=== PATIENT | male | born 1990 | race American Indian/Alaskan Native ===

== ENCOUNTER 2017-06-21 16:57 | Emergency (ER) | payer SELFPAY ==
[2017-06-21 17:26] VITALS: BP 129/68
[2017-06-21] MEDS ORDERED: ZITHROMAX PO ONE (17:40)
[2017-06-21] MEDS ORDERED: XYLOCAINE 1% MPF 5 mL INFILTRATI ONE (17:40)
[2017-06-21] MEDS ORDERED: ROCEPHIN IM ONE (17:40)
--- NOTE | 2017-06-21 17:41 | Emergency Department Report ---
ED Male HPI - General Chief complaint: Urogenital-Male Stated complaint: PENILE DISCHARGE Time Seen by Provider: 06/21/17 17:36 Source: patient Mode of arrival: Ambulatory Limitations: No Limitations - History of Present Illness Initial comments: 26-year-old male past medical history none presents with complaint of 3-4 days of penile discharge and burning with urination. States he has whitish yellowish discharge from tip of penis. Patient is awake alert and oriented 3, denies nausea vomiting diarrhea abdominal pain. Denies any genitourinary rash. States he is currently sexually active and last received oral sex a week ago. Multiple sexual partners in the last 6 months. Unprotected homosexual sex. MD Complaint: penile discharge Onset/Timin -: days(s) Location: penis Quality: burning Consistency: constant Improves with: none Worsens with: none discharge - Related Data Previous Rx's Medication Instructions Recorded Last Taken Type metroNIDAZOLE [Metronidazole] 1,000 mg PO BID #4 tablet 06/21/17 Unknown Rx Allergies Allergy/AdvReac Type Severity Reaction Status Date / Time No Known Allergies Allergy Unverified 06/21/17 17:24 ED Review of Systems ROS: Stated complaint: PENILE DISCHARGE Other details as noted in HPI Constitutional: denies: chills, fever Eyes: denies: eye pain, eye discharge, vision change ENT: denies: ear pain, throat pain Respiratory: denies: cough, shortness of breath, wheezing Cardiovascular: denies: chest pain, palpitations Endocrine: no symptoms reported Gastrointestinal: denies: abdominal pain, nausea, diarrhea Genitourinary: discharge. denies: urgency, dysuria Musculoskeletal: denies: back pain, joint swelling, arthralgia Skin: denies: rash, lesions Neurological: denies: headache, weakness, paresthesias Psychiatric: denies: anxiety, depression Hematological/Lymphatic: denies: easy bleeding, easy bruising ED Past Medical Hx - Past Medical History Previous Medical History?: No - Surgical History Past Surgical History?: No - Social History Smoking Status: Current Some Day Smoker Substance Use Type: None - Medications Home Medications: Home Medications Medication Instructions Recorded Confirmed Last Taken Type metroNIDAZOLE [Metronidazole] 1,000 mg PO BID #4 tablet 06/21/17 Unknown Rx ED Physical Exam - General Limitations: No Limitations General appearance: alert, in no apparent distress - Head Head exam: Present: atraumatic, normocephalic - Eye Eye exam: Present: normal appearance, PERRL, EOMI - ENT ENT exam: Present: mucous membranes moist - Neck Neck exam: Present: normal inspection - Respiratory Respiratory exam: Present: normal lung sounds bilaterally. Absent: respiratory distress - Cardiovascular Cardiovascular Exam: Present: regular rate, normal rhythm. Absent: systolic murmur, diastolic murmur, rubs, gallop - GI/Abdominal GI/Abdominal exam: Present: soft, normal bowel sounds - Rectal Rectal exam: Present: deferred - exam: Present: urethral discharge (yellowish urethral discharge) - Extremities Exam Extremities exam: Present: normal inspection - Back Exam Back exam: Present: normal inspection - Neurological Exam Neurological exam: Present: alert, oriented X3 - Psychiatric Psychiatric exam: Present: normal affect, normal mood - Skin Skin exam: Present: warm, dry, intact, normal color. Absent: rash ED Course Vital Signs 06/21/17 17:24 Temperature 98.4 F Pulse Rate 73 Respiratory 16 Rate Blood Pressure 129/68 O2 Sat by Pulse 99 Oximetry ED Medical Decision Making - Medical Decision Making A/P: Urethritis 1-patient empirically treated with azithromycin and ceftriaxone 2-GC cultures sent 3-patient given follow-up with primary care 4- empiric treatment for Trichomonas with 2 g of metronidazole Critical care attestation.: If time is entered above; I have spent that time in minutes in the direct care of this critically ill patient, excluding procedure time. ED Disposition Clinical Impression: Urethritis Disposition: DC-01 TO HOME OR SELFCARE Is pt being admited?: No Does the pt Need Aspirin: No Condition: Stable Instructions: Nonspecific Urethritis in Men (ED) Prescriptions: metroNIDAZOLE [Metronidazole] 1,000 mg PO BID #4 tablet Referrals: [facility] [Provider Group] - 3-5 Days Forms: STI Treatment and Prevention Time of Disposition: 17:42
[2017-06-21 18:40] LABS: Bilirubin,Urine NEG (Negative); Color,Urine Yellow (Yellow)
[2017-06-21 18:41] LABS: Blood,Urine NEG (Negative); Mucus,Urine FEW /HPF; Nitrite,Urine NEG (Negative); Protein,Urine <15 mg/dL mg/dL (Negative); Urobilinogen,Urine < 2.0 mg/dL (<2.0)
== END 2017-06-21 18:22 | disposition home or self-care (01) ==
LOC: ED 16:57
DX: N34.2 Other urethritis (principal); F17.200 Nicotine dependence, unspecified, uncomplicated
CPT/HCPCS: 81001; 87591; 96372; 99283; J0696

== ENCOUNTER 2018-06-16 06:26 | Emergency (ER) | payer OTHER ==
[2018-06-16] MEDS ORDERED: ULTRAM PO ONE (08:16)
--- NOTE | 2018-06-16 08:19 | Emergency Department Report ---
ED ENT HPI - General Chief complaint: Sore Throat Stated complaint: SORE THROAT Time Seen by Provider: 06/16/18 08:07 Source: patient Mode of arrival: Ambulatory Limitations: No Limitations - History of Present Illness Initial comments: 27-year-old -Martin[place]ais male with a past medical history of HIV comes in for painful right side of throat since . Patient reports he is tried taking Cepacol throat spray and lozenges without much relief. Patient also reports he took ibuprofen which she reports helped some but pain returns. Patient states he has difficulty swallowing. MD complaint: sore throat, difficulty swallowing -: days(s) (3) Location: throat Severity: severe Severity scale (0 -10): 9 Quality: aching, sharp Consistency: constant Improves with: NSAID Worsens with: swallowing Associated Symptoms: pain with swallowing, sore throat. denies: fever, cough, gum swelling, toothache - Related Data Previous Rx's Medication Instructions Recorded Last Taken Type metroNIDAZOLE [Metronidazole] 1,000 mg PO BID #4 tablet 06/21/17 Unknown Rx Amoxicillin [Amoxicillin TAB] 875 mg PO BID #20 tablet 06/16/18 Unknown Rx Ibuprofen [Motrin 800 MG tab] 800 mg PO Q8HR PRN #15 tablet 06/16/18 Unknown Rx Allergies Allergy/AdvReac Type Severity Reaction Status Date / Time No Known Allergies Allergy Unverified 06/21/17 17:24 ED Dental HPI - General Chief complaint: Sore Throat Stated complaint: SORE THROAT Time Seen by Provider: 06/16/18 08:07 Source: patient Mode of arrival: Ambulatory Limitations: No Limitations - Related Data Previous Rx's Medication Instructions Recorded Last Taken Type metroNIDAZOLE [Metronidazole] 1,000 mg PO BID #4 tablet 06/21/17 Unknown Rx Amoxicillin [Amoxicillin TAB] 875 mg PO BID #20 tablet 06/16/18 Unknown Rx Ibuprofen [Motrin 800 MG tab] 800 mg PO Q8HR PRN #15 tablet 06/16/18 Unknown Rx Allergies Allergy/AdvReac Type Severity Reaction Status Date / Time No Known Allergies Allergy Unverified 06/21/17 17:24 ED Review of Systems ROS: Stated complaint: SORE THROAT Other details as noted in HPI Comment: All other systems reviewed and negative Constitutional: denies: fever ENT: throat pain ED Past Medical Hx - Past Medical History Previous Medical History?: Yes Hx HIV: Yes - Surgical History Past Surgical History?: No - Social History Smoking Status: Current Some Day Smoker Substance Use Type: None - Medications Home Medications: Home Medications Medication Instructions Recorded Confirmed Last Taken Type metroNIDAZOLE [Metronidazole] 1,000 mg PO BID #4 tablet 06/21/17 Unknown Rx Amoxicillin [Amoxicillin TAB] 875 mg PO BID #20 tablet 06/16/18 Unknown Rx Ibuprofen [Motrin 800 MG tab] 800 mg PO Q8HR PRN #15 tablet 06/16/18 Unknown Rx ED Physical Exam - General Limitations: No Limitations General appearance: alert, in no apparent distress - Head Head exam: Present: atraumatic, normocephalic - Eye Eye exam: Present: EOMI - ENT ENT exam: Present: mucous membranes moist - Expanded ENT Exam Expanded Throat exam: Positive: tonsillar erythema, tonsillomegaly. Negative: tonsillar exudate - Neck Neck exam: Present: lymphadenopathy - Respiratory Respiratory exam: Present: normal lung sounds bilaterally. Absent: respiratory distress - Neurological Exam Neurological exam: Present: alert, oriented X3, normal gait - Psychiatric Psychiatric exam: Present: normal affect, normal mood - Skin Skin exam: Present: warm, dry, intact, normal color. Absent: rash ED Medical Decision Making - Medical Decision Making Patient has been evaluated by this provider in fast track. He shouldn't test came back positive for strep will treated with amoxicillin 875 mg twice a day for 10 days discussed the patient to follow up with his infectious disease provider. Patient verbalized understanding Critical care attestation.: If time is entered above; I have spent that time in minutes in the direct care of this critically ill patient, excluding procedure time. ED Disposition Clinical Impression: Strep throat Disposition: DC-01 TO HOME OR SELFCARE Is pt being admited?: No Does the pt Need Aspirin: No Condition: Stable Instructions: Strep Throat (ED) Additional Instructions: Please complete antibiotics as prescribed. Pain medication as needed. Increase her fluid intake eventually diagnosed tolerated follow up with primary care provider if his symptoms persist or gets worse. Prescriptions: Amoxicillin [Amoxicillin TAB] 875 mg PO BID #20 tablet Ibuprofen [Motrin 800 MG tab] 800 mg PO Q8HR PRN #15 tablet PRN Reason: Pain , Severe (7-10) Referrals: TOMÁS YANG MD [Primary Care Provider] - 3-5 Days Forms: Work/School Release Form(ED)
[2018-06-17 13:45] VITALS: BP 142/70
== END 2018-06-16 09:16 | disposition home or self-care (01) ==
LOC: ED 06:26
DX: J02.0 Streptococcal pharyngitis (principal); F17.200 Nicotine dependence, unspecified, uncomplicated
CPT/HCPCS: 87430; 99283